=== PATIENT | female | born 1990 | race Caucasian/White ===

== ENCOUNTER 2017-11-27 20:09 | Emergency (ER) | payer SELFPAY ==
[~2017-11-27] VITALS: Ht 152.4 cm; Wt 46.3 kg
[2017-11-27 20:10] VITALS: BP 101/58
== END 2017-11-27 21:06 | disposition left against medical advice (07) ==
LOC: ED 21:00
DX: F41.9 Anxiety disorder, unspecified (principal)
CPT/HCPCS: 93005; 99283

== ENCOUNTER 2020-07-29 12:50 | Day surgery (SDC) | payer BC ==
[~2020-07-29] VITALS: Ht 152.4 cm; Wt 39.2 kg
[2020-07-29] MEDS ORDERED: MIDAZOLAM 1 MG/ML, 2ML ONE (13:03)
[2020-07-29] MEDS ORDERED: FENTANYL PF 250 MCG/5ML ONE (13:03)
[2020-07-29] MEDS ORDERED: OXYMETAZOLINE NASAL SPRAY 0.05%,30ML ONE (13:09)
[2020-07-29] MEDS ORDERED: LIDOCAINE/PF 1%, 30ML ONE (14:01)
[2020-07-29] MEDS ORDERED: EPINEPHRINE 1 MG/ML, 1ML ONE (14:01)
[2020-07-29] MEDS ORDERED: BUPIVACAINE/PF 0.25% ONE (14:01)
[2020-07-29 14:02] VITALS: BP 115/64
[2020-07-29] MEDS ORDERED: CHLORHEXIDINE 15 ML UDC ONE (14:11)
[2020-07-29] MEDS ORDERED: NONE PER PT (14:15)
[2020-07-29 14:16] LABS: HCG UR SG 1.014 (1.003-1.030)
[2020-07-29] MEDS ORDERED: CHLORHEXIDINE 15 ML UDC MM ONE (14:30)
[2020-07-29] MEDS ORDERED: MIDAZOLAM 2 MG/ML ORAL SOL PO ONE (15:00)
[2020-07-29] MEDS ORDERED: NEOSTIGMINE 1 MG/ML, 10ML ONE (15:18)
[2020-07-29] MEDS ORDERED: ONDANSETRON 2MG/ML, 2ML ONE (15:18)
[2020-07-29] MEDS ORDERED: ROCURONIUM 10MG/ML,5ML ONE (15:18)
[2020-07-29] MEDS ORDERED: GLYCOPYRROLATE 0.2MG/1ML, 5ML ONE (15:18)
[2020-07-29] MEDS ORDERED: DEXAMETHASONE 4 MG/ML, 1ML ONE (15:18)
[2020-07-29] MEDS ORDERED: PROPOFOL 10 MG/ML, 20ML ONE (15:18)
[2020-07-29] MEDS ORDERED: CEFAZOLIN 1,000 MG ONE (15:18)
[2020-07-29] MEDS ORDERED: LABETALOL 5MG/ML, 20ML IV PRN (15:30)
[2020-07-29] MEDS ORDERED: PROMETHAZINE 25 MG/ML, 1ML IVPush PRN (15:30)
[2020-07-29] MEDS ORDERED: ACETAMINOPHEN 325 MG TABLET PO PRN (15:30)
[2020-07-29] MEDS ORDERED: hydrALAzine 20 MG/ML, 1ML IV PRN (15:30)
[2020-07-29] MEDS ORDERED: OXYcodone 5 MG/5 ML ORAL.SOL UDC PO PRN (15:30)
[2020-07-29] MEDS ORDERED: HALOPERIDOL 5 MG/ML IV PRN (15:30)
[2020-07-29] MEDS ORDERED: MEPERIDINE/PF 25MG/0.5ML IVPush PRN (15:30)
[2020-07-29] MEDS ORDERED: HYDROmorphone 1 MG/ML, 1ML INJ IVPush PRN (15:30)
[2020-07-29] MEDS ORDERED: FENTANYL PF 100 MCG/2ML ONE (16:52)
[2020-07-29] MEDS ORDERED: OXYcodone 5 MG/5 ML ORAL.SOL UDC ONE (16:52)
[2020-07-29] MEDS: FENTANYL PF 100 MCG/2ML IV PRN ×2 (17:05→17:10)
== END 2020-07-29 18:20 | disposition home or self-care (01) ==
LOC: OUT 12:50
PROVIDERS: ATTEND Dentist
DX: K02.9 Dental caries, unspecified (principal); K08.89 Other specified disorders of teeth and supporting structures; Z20.822 Contact with and (suspected) exposure to COVID-19
CPT/HCPCS: 41899; 81025; 87635; C1762; C1781; J0171; J0690; J1100; J2250; J2405; J2704; J2710; J3010